=== PATIENT | female | born 1995 | race Caucasian/White ===

== ENCOUNTER 2018-06-16 11:44 | Emergency (ER) | payer OTHER, SELFPAY ==
[2018-06-16 11:45] VITALS: BP 141/99; PULSE 71; RESP 16; TEMP 36.8; O2SAT 99; BMI 24.0
[2018-06-16 12:22] LABS: Absolute Lymphocyte Count 2.25 X10^3/ul (0.83-4.51); Absolute Neutrophil Count 6.7 X10^3/uL (2.0-7.7); Basophil# 0.02 X10^3/uL; Basophil% 0.2 % (0-1); Eosinophil# 0.17 X10^3/uL; Eosinophils% 1.7 % (0-5); Hematocrit 40.7 % (37-47); Hemoglobin 13.6 g/dl (12.0-15.0); Lymphocyte # 2.25 X10^3/ul (4.0); Lymphocyte % 22.5 % (19-41); Mean Corp Hgb Conc 33.4 g/gl (32-36); Mean Corpuscular Hgb 29.7 pg (27.0-32.0); Mean Corpuscular Volume 88.9 fL (81-99); Mean Platelet Vol. 9.9 fl (6.2-12.0); Neutrophil # 6.73 X10^3/uL (2.7-7.7); Neutrophil % 67.4 % (47-70); Platelet Count 277 K/mm3 (150-450); RBC Distribution Width CV 12.4 % (11.6-14.6); RBC Distribution Width SD 39.8 fl (35.1-43.9); Red Blood Count 4.58 M/mm3 (4.2-5.4)
[2018-06-16 12:31] LABS: POSITIVE COUNT NO; POSITIVE DIFFERENTIAL NO; POSITIVE MORPHOLOGY NO
[2018-06-16 12:37] LABS: AST(SGOT) 11 U/L (15-37); Alanine Aminotransfer ALT/SGPT 15 U/L (13-56); Albumin, Serum 3.8 g/dL (3.2-5.0); Alkaline Phosphatase 88 U/L (45-117); Anion Gap 6 (5-15); BUN 9 mg/dL (7-18); Bilirubin, Direct 0.15 mg/dL (0.00-0.30); Calcium,Total 8.9 mg/dL (8.5-10.1); Chloride 104 mmol/L (98-107); Creatinine, Serum 0.82 mg/dL (0.55-1.02); EST Glomerular Filtration Rate 92 mL/min (>60); Est Glom Filt Rate - Afr Amer 112 mL/min (>60); Estimated Creatinine Clearance 92.93 ml/min; Globulin 4.6 g/dL (2.2-4.2); Glucose 87 mg/dL (74-106); Lipase 138 U/L (73-393); Potassium 3.6 mmol/L (3.5-5.1); Protein, Total 8.4 g/dL (6.4-8.2); Sodium Level 137 mmol/L (136-145)
[2018-06-16 12:41] LABS: Pregnancy, Serum, hCG Quali. NEGATIVE Negative (0-9 Nonpreg)
--- NOTE | 2018-06-16 14:52 | ED.VISSUMM ---
- ER Visit Summary Date of Service: 06/16/18 Chief Complaint: Right upper quadrant abdominal pain History of Present Illness: The patient is a 22 F no senior past medical history. States that she had 3-day history of abdominal pain. She denies any nausea vomiting diarrhea or fever. No melena. No dysuria. She denies any chest pain or shortness of breath. States it is high just below her right rib cage. Not associated with food or eating. She is never had this before. She denies any trauma. She denies any chest pain or shortness of breath. She has had no recent trauma, surgery, mobilization. No hemoptysis. She is not on any type of control pill she denies any leg swelling. Physical Examination: Well-appearing young female. Vital signs are stable afebrile. Heart rate 71 pulse ox 99% on room air no signs of hypoxia. She is in absolutely no distress. H EENT exam unremarkable. Normal. Neck nontender. No lymphadenopathy. Lungs clear to auscultation bilaterally. Heart regular rhythm no murmur rate about 70. Chest wall nontender. Abdomen soft. Non-distended. Normal bowel sounds. The only tenderness she has to deep palpation in the high right upper quadrant just below the rib cage. There is no ecchymosis or bruising. I do not feel any obvious hepatomegaly. There is no Fox sign. The right lower quadrant is unremarkable left side is nontender. There is no hernia or masses. No signs of trauma. Normal bowel sounds. She is moving all 4 extremities. Neurovascular intact. Calves are nontender. No edema. No cords. Back nontender. Neurologic exam normal. Test Results: BC normal. White count of 10. Hemoglobin normal. Electrolytes normal. Liver enzymes normal. Lipase normal. Serum test negative. Emergency Department Course and Treatment: Repeat exam at 1455 patient is doing well. Abdomen is benign. She will be discharged home. Treatment Plan: Patient's labs are all negative. She will be discharged for outpatient follow-up. Disposition: Discharge Impression: Acute right upper quadrant abdominal pain of uncertain etiology This note was generated with [employer] software. It may contain incorrect words, spelling, and punctuation that were not noted in review of the chart prior to signing ED Disposition - Plan for ED Patient: Chief Complaint: Abd Pain Referrals: Care Physician,No Primary [Primary Care Provider] -
--- NOTE | 2018-06-16 14:55 | ED.DCSUM_ITS ---
- ER Visit Summary Date of Service: 06/16/18 Chief Complaint: Right upper quadrant abdominal pain History of Present Illness: The patient is a 22 F no senior past medical history. States that she had 3-day history of abdominal pain. She denies any nausea vomiting diarrhea or fever. No melena. No dysuria. She denies any chest pain or shortness of breath. States it is high just below her right rib cage. Not associated with food or eating. She is never had this before. She denies any trauma. She denies any chest pain or shortness of breath. She has had no recent trauma, surgery, mobilization. No hemoptysis. She is not on any type of control pill she denies any leg swelling. Physical Examination: Well-appearing young female. Vital signs are stable afebrile. Heart rate 71 pulse ox 99% on room air no signs of hypoxia. She is in absolutely no distress. H EENT exam unremarkable. Normal. Neck nontender. No lymphadenopathy. Lungs clear to auscultation bilaterally. Heart regular rhythm no murmur rate about 70. Chest wall nontender. Abdomen soft. Non- distended. Normal bowel sounds. The only tenderness she has to deep palpation in the high right upper quadrant just below the rib cage. There is no ecchymosis or bruising. I do not feel any obvious hepatomegaly. There is no Fox sign. The right lower quadrant is unremarkable left side is nontender. There is no hernia or masses. No signs of trauma. Normal bowel sounds. She is moving all 4 extremities. Neurovascular intact. Calves are nontender. No edema. No cords. Back nontender. Neurologic exam normal. Test Results: BC normal. White count of 10. Hemoglobin normal. Electrolytes normal. Liver enzymes normal. Lipase normal. Serum test negative. Emergency Department Course and Treatment: Repeat exam at 1455 patient is doing well. Abdomen is benign. She will be discharged home. Treatment Plan: Patient's labs are all negative. She will be discharged for outpatient follow-up. Disposition: Discharge Impression: Acute right upper quadrant abdominal pain of uncertain etiology This note was generated with [employer] software. It may contain incorrect words, spelling, and punctuation that were not noted in review of the chart prior to signing ED Disposition - Plan for ED Patient: Chief Complaint: Abd Pain Referrals: Care Physician,No Primary [Primary Care Provider] -
--- NOTE | 2018-06-16 14:59 | ED.DEP ---
ED Disposition - Plan for ED Patient: Disposition: Home or Assisted Living Chief Complaint: Abd Pain Instructions: ED Abdominal Pain Unkn Cause Referrals: Aubrey Gross MD [STAFF PHYSICIAN] - 1 Week if not improving Additional Instructions: Are normal today. Follow-up with Dr. Gross if not improving for further evaluation and possible ultrasound.
[2018-06-16 15:07] VITALS: RESP 18
== END 2018-06-16 15:08 | disposition home or self-care (01) ==
PROVIDERS: Emergency Provider Emergency Medicine
DX: R10.11 Right upper quadrant pain (principal); Z72.0 Tobacco use; Z79.899 Other long term (current) drug therapy
CPT/HCPCS: 80048; 80076; 83690; 84703; 85025; 99282

== ENCOUNTER 2022-08-31 06:24 | Emergency (ER) | payer BC, SELFPAY ==
[2022-08-31 06:27] VITALS: BP 147/97; PULSE 84; RESP 16; TEMP 36.4; O2SAT 100; BMI 27.4
--- NOTE | 2022-08-31 07:05 | US_ITS ---
STUDY: FIRST TRIMESTER OBSTETRICAL ULTRASOUND (TWINS) REASON FOR EXAM: Female, 27 years old. LMP: Unknown. spotting- no pain per patient TECHNIQUE: Transvaginal TECHNICAL QUALITY: Adequate. COMPARISON: None. FINDINGS: There are two demonstrated intrauterine gestational sacs. Two discrete placenta consistent with a dichorionic . The amniotic membrane cannot be visualized. The estimated gestation age (EGA) by LMP is 6 weeks, 1 days. The estimated date of delivery (MARTIN) by LMP is 04/25/2023. BABY A The mean sac diameter (MSD) measure 9 mm, indicating an estimated gestational age (EGA) of 5 weeks, 6 days. There is no demonstrated yolk sac. There is no demonstrated embryo ( pole). The estimated gestation age (EGA) by US is 5 weeks, 6 days. The estimated date of delivery (MARTIN) by US is 04/27/2023. BABY B The mean sac diameter (MSD) measure 8 mm, indicating an estimated gestational age (EGA) of 5 weeks, 4 days. There is no demonstrated yolk sac. There is no demonstrated embryo ( pole). The estimated gestation age (EGA) by US is 5 weeks, 4 days. The estimated date of delivery (MARTIN) by US is 04/29/2023. MATERNAL ANATOMY The uterus measures 9.6 x 6.4 cm x 6.1 cm. There is no demonstrated uterine fibroid. The cervix is closed. The right ovary measures 2.9 cm x 2.3 cm x 2.1 cm. There is no right ovarian cyst. There is no visualized right adnexal mass or complex lesion. The left ovary measures 2.5 cm x 2 cm x 1.7 cm. There is no left ovarian cyst. There is no visualized left adnexal mass or complex lesion. There is no fluid in the cul de sac. US/Transvaginal w/Preg US IMPRESSION: Intrauterine gestational sacs. No yolk sac or pole seen at this time. Follow-up is recommended. Electronically Signed: Maurice Lennon MD at 9:30 EST ,
--- NOTE | 2022-08-31 07:06 | EDS_ITS ---
HPI HPI - Female History of Present Illness Chief Complaint: Vag Bld, Preg Narrative Narrative: Patient presents with some flank pain, she has no vaginal bleeding the chief complaint says vaginal bleeding however I talked to her she had some brown discharge but she says absolutely no blood. She is 6 weeks , apparently her hCG has not been increasing properly, however she is with twins. She has no urinary symptoms. No abdominal pain. No recent fever or chills. No nausea or vomiting. PFSH PFSH Medical History no medical history Home Medications multivitamin no.47-iron fum 27 mg-folate no.1 1 mg-dha 300 mg capsule (PNV-DHA) 1 cap PO DAILY 08/31/22 [History Last Taken Unknown] Allergy/AdvReac Type Severity Reaction Status Date / Time No Known Allergies Allergy Verified 08/31/22 06:25 Social History Smoking Status: Never smoker ROS ROS ED ROS Narrative Past medical history: Reviewed., G4, P2 with recent miscarriage Medications: Reviewed Social history: Noncontributory Review of systems: All systems negative except as indicated General: No fever Eyes: No visual changes ENT: No upper airway congestion, normal voice Neck: No neck pain Cardiovascular: No chest pain Respiratory: No shortness of breath or cough Gastrointestinal: No abdominal pain, nausea vomiting or diarrhea Genitourinary: No dysuria, she is denying any vaginal bleeding. Musculoskeletal: Denies myalgias no difficulty with ambulation Skin: No rash Neurological: No memory loss, confusion or any focal weakness Psych: No recent behavioral changes Hematologic: No easy bleeding or easy bruising EXAM Physical Exam Narrative Exam Narrative: Physical exam General: Well nourished, Well developed, No Acute Distress Head: Normocephalic, Atraumatic Eyes: Conjunctiva not pale ENT: Moist mucous membranes Neck: Supple, Nontender, No lymphadenopathy Cardiovascular: Regular rate, Regular rhythm Respiratory: No distress, CTA bilaterally Abdomen: Soft, Nontender, Nondistended : Deferred Back: Nontender, Normal Inspection. Negative for: CVA tenderness Extremities: Nontender, No edema Skin: Normal color, No rash Neurological: Alert, Normal Strength, Normal Sensation Psychological: Normal affect Const Vital Signs: 08/31/22 06:27 08/31/22 08:25 Temperature 97.5 F L 98.9 F Temperature Source Oral Temporal Pulse Rate 84 84 Respiratory Rate 16 18 Blood Pressure 147/97 H 121/74 H Blood Pressure Mean 113 89 Pulse Ox 100 98 Oxygen Delivery Method Room Air Room Air [facility] Lab Data Labs: Laboratory Results - last 24 hr 08/31/22 08/31/22 07:10 07:20 HCG, Quant 9108 H Urine Color Yellow Urine Clarity Sl. Cloudy Urine pH 8.0 Ur Specific [place] 1.010 Urine Protein Negative Urine Glucose (UA) Normal Urine Ketones Negative Urine Occult Blood Negative Urine Nitrite Negative Urine Bilirubin Negative Urine Urobilinogen Normal Ur Leukocyte Esterase Negative Urine RBC 0 SEEN Urine WBC 0 SEEN Ur Squamous Epith Cells 0-5 SEEN Urine Bacteria 1+ Urine Mucus 0 SEEN Radiography Diagnostic Testing: Clinical Impression(s) from Imaging Studies Obstetrics Ultrasound 08/31/22 07:05 IMPRESSION: Intrauterine gestational sacs. No yolk sac or pole seen at this time. Follow-up is recommended. Electronically Signed: Maurice Lennon MD at 9:30 EST , Patient's work-up is relatively unremarkable, the ultrasound is somewhat ambiguous but it is quite early and therefore only gestational sacs are seen. Regardless she is not bleeding therefore I do not believe RhoGAM is needed, I did tell her that because she is Rh- if she starts to bleed at all she will need to be seen right away. I do not have a way to track this but she tells me her last quant yesterday was 14,000, it is 9000 today therefore it is likely if this is true she is likely miscarrying. She can follow-up with her OB about this. She tells me she is due to leave for [employer] I told her she should not go, I warned her about the dangers. Discharge Plan Triage Chief Complaint: Vag Bld, Preg ED Provider: Skip Sawyer Dx/Rx/DC Orders Clinical Impression: Threatened miscarriage, First trimester Instructions: ED Possible Miscarriage ... Prescriptions: No Action PNV-DHA 27 mg iron-1 mg -300 mg capsule 1 cap PO DAILY Label Comments: TAKE 1 CAPSULE BY MOUTH EVERY DAY Primary Care Provider: Debbie Martinez Referrals: [facility] Doctor,Out of [Non-Staff] - Disposition Disposition: Home, Self Care
[2022-08-31 07:30] LABS: Mucous, Urine 0 SEEN /hpf (<or=2+); Red Blood Cells-Urine 0 SEEN /hpf (0-5); White Blood Cells 0 SEEN /hpf (0-5)
[2022-08-31 07:31] LABS: Color, Urine Yellow (Yellow); Glucose, Dipstick Normal (Normal); Ketone-Dipstick Negative (Negative); Leukocyte Esterase-Dipstick Negative /ul (Negative); Nitrite-Dipstick Negative (Negative); Occult Blood-Urine Negative /ul (Negative); Protein-Dipstick Negative (Negative); Urine Bilirubin Dipstick Negative (Negative); Urine Clarity Sl. Cloudy (Clear); Urine Urobilinogen Normal (Normal)
[2022-08-31 07:41] LABS: Bacteria 1+ /hpf (None Seen); Squamous Epithelial Cells - UA 0-5 SEEN /hpf (5-10)
[2022-08-31 07:56] LABS: hCG Titer Quant., Serum 9108 mIU/mL (1-3)
[2022-08-31 08:25] VITALS: BP 121/74; PULSE 84; RESP 18; TEMP 37.2; O2SAT 98
== END 2022-08-31 09:54 | disposition home or self-care (01) ==
PROVIDERS: Emergency Provider Emergency Medicine; PCP Family Medicine; Visit Provider Emergency Medicine
DX: O20.0 Threatened abortion (principal); Z3A.01 Less than 8 weeks gestation of pregnancy
CPT/HCPCS: 76817; 81001; 84702; 99283; A4216